=== PATIENT | male | born 1990 | race Caucasian/White ===

== ENCOUNTER 2018-06-08 23:27 | Emergency (ER) | payer OTHER ==
[~2018-06-08] VITALS: Ht 177.8 cm; Wt 97.1 kg
--- NOTE | 2018-06-09 00:09 | NUR ---
BIBSELF FOR DOG BITE ON L HAND ON 3RD FINGER; PT AAOX4, DENIES PAIN/DISCOMFORT, PT ON MONTIOR, VSS, PENDING MD MUELLER
[2018-06-09] MEDS ORDERED: DOXYCYCLINE 100 MG in IV D5W 100 ML IV ONE (01:30)
[2018-06-09] MEDS ORDERED: AMOX/CLAVULANATE 875 MG TABLET PO ONE (01:30)
[2018-06-09] MEDS ORDERED: DOXYCYCLINE 100 MG VIAL ONE (01:45)
[2018-06-09] MEDS ORDERED: AMOX/CLAVULANATE 875 MG TABLET ONE (01:45)
--- NOTE | 2018-06-09 02:21 | NUR ---
VITAL SIGNS WITHIN NORMAL LIMITS.
--- NOTE | 2018-06-09 02:21 | NUR ---
REPORT GIVEN TO COREY ROONEY FOR THEO
--- NOTE | 2018-06-09 03:59 | NUR ---
Patient discharged to home in stable condition. Written and verbal after care instructions given. Patient verbalizes understanding of instruction. IV removed. Catheter intact and site benign. Pressure and 4x4 applied to site. No bleeding noted. Pt ambulatory with a steady gait
[2018-06-09 04:00] VITALS: BP 127/89
== END 2018-06-09 04:00 | disposition home or self-care (01) ==
LOC: ER 23:32
DX: S61.213A Laceration without foreign body of left middle finger without damage to nail, initial encounter (principal); F41.9 Anxiety disorder, unspecified; F32.9 Major depressive disorder, single episode, unspecified; Z98.890 Other specified postprocedural states; W54.0XXA Bitten by dog, initial encounter; Y93.89 Activity, other specified; Y92.89 Other specified places as the place of occurrence of the external cause; Y99.8 Other external cause status
CPT/HCPCS: 12001; 96365; 99283; A6402 ×2; J3490 ×2; J7060 ×3

== ENCOUNTER 2018-07-01 22:13 | Emergency (ER) | payer OTHER ==
[~2018-07-01] VITALS: Ht 177.8 cm; Wt 99.8 kg
[2018-07-01 23:22] VITALS: BP 134/83
== END 2018-07-01 23:49 | disposition home or self-care (01) ==
LOC: ER 22:14
DX: S61.213D Laceration without foreign body of left middle finger without damage to nail, subsequent encounter (principal); F41.9 Anxiety disorder, unspecified; F32.9 Major depressive disorder, single episode, unspecified; F90.9 Attention-deficit hyperactivity disorder, unspecified type; Z90.89 Acquired absence of other organs; X58.XXXD Exposure to other specified factors, subsequent encounter